=== PATIENT | female | born 1995 | race Caucasian/White ===

== ENCOUNTER → 2021-02-05 10:24 | Outpatient (CLI) | payer OTHER, SELFPAY ==
[2021-02-05 13:26] LABS: Hematocrit 35.3 % (37-47); Hemoglobin 11.8 g/dL (12.0-15.0); Mean Corp Hgb Conc 33.4 g/dL (32-36); Mean Corpuscular Hgb 28.2 pg (27.0-32.0); Mean Corpuscular Volume 84.4 fL (81-99); Mean Platelet Vol. 11.4 fl (6.2-12.0); Platelet Count 239 K/mm3 (150-450); RBC Distribution Width CV 12.7 % (11.6-14.6); RBC Distribution Width SD 38.6 fl (35.1-43.9); Red Blood Count 4.18 M/mm3 (4.2-5.4); White Blood Count 9.8 K/mm3 (4.4-11.0)
[2021-02-05 13:36] LABS: Glucose Challenge Gest 1H 50g 125 mg/dL (70-140)
== END ==
PROVIDERS: Visit Provider Obstetrics & Gynecology
DX: Z34.90 Encounter for supervision of normal pregnancy, unspecified, unspecified trimester (principal)
CPT/HCPCS: 36415; 82950; 85027

== ENCOUNTER → 2021-02-18 09:02 | Outpatient (CLI) | payer OTHER, SELFPAY | PROVIDERS: Visit Provider Obstetrics & Gynecology | DX: Z34.83 Encounter for supervision of other normal pregnancy, third trimester (principal) | CPT/HCPCS: 36415; 86850 ==

== ENCOUNTER → 2021-04-14 17:04 | Outpatient (CLI) | payer OTHER, SELFPAY | PROVIDERS: Visit Provider Obstetrics & Gynecology | DX: Z36.85 Encounter for antenatal screening for Streptococcus B (principal) | CPT/HCPCS: 87081 ==

== ENCOUNTER 2021-05-21 07:00 | Inpatient (IN) | payer OTHER, SELFPAY ==
[2021-05-21] VITALS (174 sets, daily range): BP systolic 82–118; BP diastolic 45–67; PULSE 71–149; RESP 16–18; TEMP 32–37.1; O2SAT 82–100; BMI 36.8
--- NOTE | 2021-05-21 07:40 | PCM.HP.BLA ---
History and Physical Date of Admission: 05/21/21 Chief complaint: Induction of labor at term History of present illness: 25-year-old G1, P0 41 weeks and 4 days with CAYLA: 05/10/2021 by LMP arrives for induction of labor at term. Denies headache, chest pain, shortness of breath, nausea vomiting, right upper quadrant pain. Patient has good movement. Obstetric history: G1: Current Past medical history: Denies Medications: vitamin Past surgical history: [place] teeth extraction Allergies: No known drug allergies Social history: Denies smoking, alcohol use, drug use Family history: Denies history DVT or PE Review of systems: Besides above pertinent positives for review systems was performed found to be negative Physical exam: General: Normal-appearing no acute distress HEENT: Normocephaly atraumatic no cervical of adenopathy Cardiac/respiratory: No use of accessory muscles nonlabored breathing Abdomen: Soft, nontender, gravid Pelvic exam: Cervical exam 2/70/-2 Extremities: No peripheral edema normal peripheral pulses Psych: Normal affect normal demeanor nonpressured speech Assessment plan: 25-year-old G1, P0 at 41 weeks and 4 days for induction of labor at term Admit labor and delivery CEFM GBS negative Pitocin induction Routine orders Anesthesia to see
[2021-05-21] MEDS: Lactated Ringers 500 ML 999 ML IV (08:07)
[2021-05-21 08:27] LABS: Absolute Lymphocyte Count 1.54 X10^3/uL (0.83-4.51); Absolute Neutrophil Count 13.3 X10^3/uL (2.0-7.7); Basophil# 0.04 X10^3/uL; Basophil% 0.3 % (0-1); Eosinophils% 0.6 % (0-5); Hematocrit 37.7 % (37-47); Hemoglobin 12.3 g/dL (12.0-15.0); Lymphocyte # 1.54 X10^3/ul (0.83-4.51); Lymphocyte % 9.7 % (19-41); Mean Corp Hgb Conc 32.6 g/dL (32-36); Mean Corpuscular Hgb 25.5 pg (27.0-32.0); Mean Corpuscular Volume 78.2 fL (81-99); Mean Platelet Vol. 11.5 fl (6.2-12.0); Monocyte# 0.82 X10^3/uL; Monocyte% 5.2 % (0-10); NRBC Flagged by Analyzer 0 % (0-5); Neutrophil # 13.27 X10^3/uL (2.7-7.7); Neutrophil % 83.4 % (47-70); Platelet Count 220 K/mm3 (150-450); RBC Distribution Width CV 14.9 % (11.6-14.6); RBC Distribution Width SD 41.9 fl (35.1-43.9); Red Blood Count 4.82 M/mm3 (4.2-5.4); White Blood Count 15.9 K/mm3 (4.4-11.0)
[2021-05-21] MEDS: Lactated Ringers 1,000 ML 200 ML IV (08:39)
--- NOTE | 2021-05-21 09:10 | PCM.PN.BLA ---
Progress Note Subjective: Patient now comfortable in bed. Slightly tearful with stress from heart rate monitor. Feeling contractions Physical exam: Vital signs: Pulse 86 SpO2 99% on room air General: Mildly distressed, tearful HEENT: Normocephalic atraumatic no cervical lymphadenopathy Cardiac/respiratory: Nonlabored breathing, no use of accessory muscles Abdomen: Soft, nontender, gravid Cervical exam: Unchanged 2/70/-2 Extremities: No peripheral edema normal peripheral pulses Psych: Normal affect normal demeanor nonpressured speech heart tones: 150/moderate variability/negative accelerations/prolonged deceleration x2 for 3 minutes resolved after hands and knees positioning and IV fluid bolus. Now with late decelerations with greater than 50% of contractions Assessment plan: Patient seen and examined called by nursing with prolonged deceleration x2 resolved with hands and knees and IV fluids. Cervical exam repeated no cervical change noted. Patient feeling contractions but no cervical change. Educated patient on prolonged decelerations and remote from delivery. Educated on no augmentation of labor and remote from delivery. Discussed primary section patient agrees, risk benefits alternatives discussed. Patient states understanding wish to proceed. All questions were answered. We will proceed forward with primary section for nonreassuring heart tones. 2 g Ancef and 500 mg azithromycin. Anesthesia to see. For now
[2021-05-21] MEDS: Acetaminophen 500 MG Tablet PO (09:11)
[2021-05-21] MEDS: Sodium Citrate/Citric Acid 30 ML UDC PO (09:25)
[2021-05-21] MEDS: Cefazolin 2 GM in 0.9% Normal Saline 100 ML IV (09:29)
[2021-05-21 09:35] LABS: Hepatitis C Antibody Non-Reactive (Nonreactive)
--- NOTE | 2021-05-21 10:23 | EX.PCM.OBRPT ---
Details Operative Information Date of Procedure: 05/21/21 Pre-Operative Diagnosis: term, nonreassuring heart tones Post-Operative Diagnosis: Term, nonreassuring heart tones radiology interventional physician #1: Adriana Saunders Findings Description of Procedure: Procedure: Primary low transverse section Via Pfannenstiel incision Surgeon: Kingsley Manzo MD Anesthesia: Spinal EBL 600 cc IV fluids: 1200 cc Urine output: 600 cc Complications: None Specimen: None Findings: Female in vertex position Apgars 8/9. Normal uterus, tubes, and ovaries. Consent: Patient arrived for induction of labor at term found to have nonreassuring heart tones need of primary section. Patient understands the risk of the procedure include but are not limited to visceral or vascular injury, prolonged hospitalization, blood loss and need for transfusion, reoperation. He stated understanding and wished proceed. All questions were answered and consent was signed. Procedure: Patient was brought back to the OR where spinal anesthesia found to be adequate. 2 g of Ancef and 500 mg of azithromycin were given for infection prophylaxis. Patient was prepared and draped in a supine position with leftward tilt. A Pfannenstiel incision was made the skin with a scalpel. The incision was carried down to the fascia with a scalpel. The fascia was incised and extended laterally. Inferior aspect the fascia was grasped and the underlying rectus and pyramidalis muscle resected off sharply with Pink scissors. In similar fashion superior aspect the fascia was grasped and the underlying rectus muscle was dissected off sharply. Rectus muscle was dissected at the midline down to the level of pubic symphysis. Preperitoneal fatty tissue was noted and peritoneum was entered sharply. Peritoneum was extended superiorly and inferiorly with good visualization of bladder. Bladder blade was inserted and vesicouterine peritoneum was identified. Low transverse hysterotomy was made. Hand was placed into the hysterotomy and gentle fundal pressure was applied once the head was brought into the hysterotomy and bladder blade was removed. Head and shoulders were delivered with ease. Cord was cut and clamped. Baby handed off to nursing. Placenta was delivered via cord traction and fundal massage. IV oxytocin was initiated to facilitate uterine contractions. Uterus was exteriorized and wiped out with dry laparotomy sponge in order to remove remaining placental membranes. Uterus was closed in continuous running fashion. Second layer was performed. Good hemostasis was noted. Uterus was placed back in abdominal cavity reinspected and good hemostasis was noted. Fascia was closed in continuous running fashion. Skin was closed in a subcuticular fashion. All counts correct x2. Good hemostasis was noted. Patient tolerated procedure well and was brought to recovery in a stable condition.
--- NOTE | 2021-05-21 10:46 | NURSING ---
CASH APPLICATIONS ANALYST wants 500cc fluid bolus. giving bolus with bag from OR
[2021-05-21] MEDS: Oxytocin 30 units/NS 500 ml 30 UNITS/500 ML IV.SOLN 167 UNITS IV (11:15)
[2021-05-21] MEDS: Ketorolac 30 MG/ML Syringe IV ×3 (11:15→23:43)
[2021-05-21] MEDS: Acetaminophen 500 MG Tablet 1000 MG PO ×2 (15:46→21:46)
[2021-05-21] MEDS: 0.9% Saline Lock 10 ML Syringe IV ×2 (17:30→23:43)
[2021-05-21] MEDS: Enoxaparin 40 MG/0.4 ML Syringe SC (21:46)
[2021-05-22] VITALS (8 sets, daily range): BP systolic 100–115; BP diastolic 59–71; PULSE 81–94; RESP 16–18; TEMP 36.7–37.2; O2SAT 94–98
[2021-05-22] MEDS: Acetaminophen 500 MG Tablet 1000 MG PO ×2 (03:39→10:02)
[2021-05-22 04:46] LABS: Hematocrit 32.3 % (37-47); Hemoglobin 10.5 g/dL (12.0-15.0); Mean Corp Hgb Conc 32.5 g/dL (32-36); Mean Corpuscular Hgb 25.4 pg (27.0-32.0); Mean Platelet Vol. 11.1 fl (6.2-12.0); Platelet Count 192 K/mm3 (150-450); RBC Distribution Width SD 41.9 fl (35.1-43.9); Red Blood Count 4.14 M/mm3 (4.2-5.4); White Blood Count 14.1 K/mm3 (4.4-11.0)
[2021-05-22] MEDS: 0.9% Saline Lock 10 ML Syringe IV (05:43)
[2021-05-22] MEDS: Ketorolac 30 MG/ML Syringe IV (05:43)
--- NOTE | 2021-05-22 10:20 | PCM.PN.OB ---
Subjective Subjective No overnight complaints. Pain well controlled. Objective Data Objective Data Vital Signs: Vital Signs Temp Pulse Resp BP Pulse Ox 98.7 F 85 16 114/71 98 05/22/21 04:23 05/22/21 10:06 05/22/21 04:23 05/22/21 10:06 05/22/21 04:23 Oxygen Delivery Method Room Air Weight: 228 lb 6 oz Body Mass Index (BMI) 36.8 Intake & Output: Intake and Output for Last 24 Hours 05/20/21 05/21/21 05/22/21 23:59 23:59 23:59 Intake Total 2465.00 / 2465.00 Output Total 1950 / 1950 Balance 515.00 / 515.00 Lab / Micro Data Result Diagrams: 05/22/21 04:30 Labs: Laboratory Results - last 24 hr 05/22/21 04:30 WBC 14.1 H RBC 4.14 L Hgb 10.5 L Hct 32.3 L MCV 78.0 L MCH 25.4 L MCHC 32.5 RDW Std Deviation 41.9 RDW Coeff of Ramya 15.0 H Plt Count 192 MPV 11.1 Physical Exam Const alert, oriented x3, no apparent distress, average body habitus and healthy appearing HEENT normocephalic and moist oral mucous membranes Head and Scalp: atraumatic Face and Sinus: normal facial exam Neck full ROM Resp normal respiratory effort, no retractions and no use of accessory muscles GI normal to inspection, nondistended, normoactive bowel sounds GI Narrative: Bandage clean dry and intact Extremity normal to inspection, full ROM and no clubbing, cyanosis or edema Skin no rashes or lesions noted Psych mental status grossly normal, affect normal, speech normal and activity/motor behavior normal Assessment & Plan (1) Delivery by section: PLAN: Postoperative day 1 status post primary section for nonreassuring heart tones. Pain well controlled. Desires discharge home today, okay to discharge home today if okay with shipping/receiving manager.
--- NOTE | 2021-05-22 10:21 | PCM.DC ---
Discharge Instructions Diet Discharge Diet: No restrictions Activity Discharge Activity: Return to Normal Activity and May Shower May resume sexual activity in: 4-6 weeks Lifting Restrictions: No lifting over 25 pounds for 2 to 3 weeks Dressing / Incision Call your doctor if your incision/area has: Continuous Slow Oozing and Foul Smelling Discharge Call your doctor if you observe: Fever of 101 or Higher, Shortness of breath and Chest pain Follow Up Care Please Follow Up With: Kingsley Manzo MD When: Follow-up 2 weeks postoperatively, 4 to 6 weeks Test Results: Test results from this visit will be discussed in further detail at your follow-up appointment, if applicable. Discharge Plan Admission Admit Date/Time: 05/21/21 07:00 Attending Provider: Kingsley Manzo Discharge Orders/Prescriptions Prescriptions: No Action PNV no.300-[id number] acid 28 mg iron- 800 mcg tablet 1 tab PO DAILY RF: 0 Disposition Discharge Orders: Discharge Patient (Routine); Ordered 05/22/21 Ordered By: Dr. Kingsley Manzo
[2021-05-22] MEDS: Ibuprofen 600 MG Tablet PO (14:12)
[2021-05-22] MEDS: Senna/Docusate Sodium 1 Tablet PO (14:13)
--- NOTE | 2021-05-27 17:41 | NURSING ---
No answer on follow up phone call left voicemail
== END 2021-05-22 16:30 | disposition home or self-care (01) | DRG 788 ==
PROVIDERS: Admitting Provider Obstetrics & Gynecology; Referring Provider Obstetrics & Gynecology; Visit Provider Obstetrics & Gynecology
DX: O76 Abnormality in fetal heart rate and rhythm complicating labor and delivery (principal); O48.0 Post-term pregnancy; Z37.0 Single live birth; Z3A.41 41 weeks gestation of pregnancy
CPT/HCPCS: 59025; 59050; 85025; 85027; 86803; 86850; 86900; 86901; 90384; 99218; 99251; J7120; A4216; G0378; G0463; J2405; J2790

== ENCOUNTER → 2021-06-29 | Outpatient (CLI) | payer OTHER, SELFPAY ==
[2021-06-09 15:41] VITALS: BMI 33.4
[2021-07-01 20:08] LABS: Chlamydia By Nucleic Acid AMP Negative (Negative)
[2021-07-01 20:25] LABS: Gonococcus By Nucleic Acid AMP Negative (Negative)
== END | disposition home or self-care (01) ==
PROVIDERS: Visit Provider Obstetrics & Gynecology
DX: Z11.3 Encounter for screening for infections with a predominantly sexual mode of transmission (principal)
CPT/HCPCS: 87491; 87591